=== PATIENT | male | born 1960 | race Two or more races ===

== ENCOUNTER 2020-06-27 12:48 | Inpatient (IN) | payer MEDICAID, MEDICARE ==
[~2020-06-27] VITALS: Ht 193 cm; Wt 125.9 kg
[~2020-06-27 12:48] MED LIST: AMLO-257 PO; LISI-662 PO; PARO10TA89 PO
[2020-06-27 14:42] LABS: BASOPHILS % (AUTO) 1.9 % (0.0-2.0); EOSINOPHILS % (AUTO) 0.1 % (1.0-6.0); HEMATOCRIT 47.4 % (41-53); HEMOGLOBIN 16.1 g/dL (13.5-17.5); LYMPHOCYTES # (AUTO) 1.9 K/uL (1.0-4.8); LYMPHOCYTES % (AUTO) 21.1 % (22.0-44.0); MEAN CORPUSCULAR HEMOGLOBIN 30.6 pg (26.0-34.0); MEAN CORPUSCULAR HGB CONC 33.9 G/dL (31.0-37.0); MEAN CORPUSCULAR VOLUME 90 fL (80-100); MONOCYTES # (AUTO) 0.5 K/uL (0.1-1.0); MONOCYTES % (AUTO) 5.5 % (2.0-9.0); NEUTROPHILS # (AUTO) 6.4 K/uL (1.8-7.7); NEUTROPHILS % (AUTO) 71.4 % (40.0-70.0); PLATELET COUNT (AUTO) 203 K/uL (150-450); RED BLOOD CELL COUNT(AUTO) 5.26 MIL/uL (4.50-5.90); RED CELL DISTRIBUTION WIDTH 13.8 % (11.5-14.5)
[2020-06-27 14:52] LABS: CALCIUM, TOTAL 9.1 mg/dL (8.8-10.5); CREATININE 1.48 mg/dL (0.60-1.30); POTASSIUM 4.5 mmol/L (3.5-5.1)
[2020-06-27 14:58] LABS: ALBUMIN 4.4 g/dL (3.4-5.0); BILIRUBIN,TOTAL 0.8 mg/dL (0.1-1.0)
[2020-06-27] MEDS ORDERED: HALOPERIDOL 5 MG TABLET PO PRN (15:00)
[2020-06-27] MEDS ORDERED: HALOPERIDOL LACTATE 5 MG/ML VIAL IM ONE (17:00)
[2020-06-27] MEDS ORDERED: LORazepam 2 MG/ML VIAL IM ONE (17:00)
[2020-06-27] MEDS ORDERED: DiphenhydrAMINE HCL 50 MG/ML VIAL IM ONE (17:00)
[2020-06-27 18:30] VITALS: BP 156/60
[2020-06-27] MEDS ORDERED: OMEPRAZOLE 20 MG CAPSULE PO PRN (20:45)
[2020-06-27] MEDS ORDERED: BENZOCAINE/MENTHOL LOZENGE MM PRN (20:45)
[2020-06-27] MEDS ORDERED: MAGNESIUM HYDROXIDE SUSPENSION 30 ML UDCUP PO PRN (20:45)
[2020-06-27] MEDS ORDERED: ONDANSETRON HCL 4 MG TABLET PO PRN (20:45)
[2020-06-27] MEDS ORDERED: CloNIDine HCL 0.1 MG TABLET PO PRN (20:45)
[2020-06-27] MEDS ORDERED: LOPERAMIDE HCL 2 MG CAPSULE PO PRN (20:45)
[2020-06-27] MEDS ORDERED: PETROLATUM,WHITE 28 GM JELLY TP PRN (20:45)
[2020-06-27] MEDS ORDERED: ACETAMINOPHEN 325 MG TABLET PO PRN (20:45)
[2020-06-27] MEDS ORDERED: BACITRACIN 28.4 GM OINTMENT TP PRN (20:45)
[2020-06-27] MEDS ORDERED: MAG HYDROX/AL HYDROX/SIMETH ES 30 ML SUSPENSION UDCUP PO PRN (20:45)
[2020-06-27] MEDS ORDERED: DOCUSATE SODIUM 100 MG CAPSULE PO PRN (20:45)
[2020-06-27] MEDS ORDERED: ALBUTEROL SULFATE HFA 90 MCG/PUFF 8 GM INHALER IH PRN (20:45)
[2020-06-27] MEDS: LORazepam 2 MG TABLET PO PRN (20:59)
[2020-06-27 22:44] VITALS: BP 131/85
[2020-06-28] VITALS (11 sets, daily range): BP systolic 89–154; BP diastolic 59–104
[2020-06-28] MEDS: LORazepam 2 MG TABLET PO PRN ×2 (06:09→12:02)
[2020-06-28 07:12] LABS: FREE T4 (FREE THYROXINE) 0.97 ng/dL (0.76-1.46)
[2020-06-28] MEDS: LISINOPRIL 20 MG TABLET PO SCH (08:22)
[2020-06-28] MEDS: AmLODIPine BESYLATE 5 MG TABLET PO SCH (08:22)
[2020-06-28] MEDS: GABAPENTIN 300 MG CAPSULE PO SCH ×3 (08:22→16:57)
[2020-06-28] MEDS: NICOTINE 14 MG/24 HOUR PATCH TD SCH (08:29)
[2020-06-28] MEDS: IBUPROFEN 600 MG TABLET PO PRN (09:22)
[2020-06-28] MEDS: QUEtiapine FUMARATE 100 MG TABLET PO PRN (12:02)
[2020-06-28] MEDS ORDERED: GuaiFENesin/D-METHORPHAN [SUGAR-FREE] 200-20MG/10 ML SYRUP UDCUP PO PRN (15:00)
[2020-06-28] MEDS: MULTIVITAMINS WITH MINERALS, THERAPEUTIC TABLET PO SCH (15:03)
[2020-06-28] MEDS: ChlordiazePOXIDE HCL 25 MG CAPSULE PO PRN (15:03)
[2020-06-29 03:30] VITALS: BP 135/77
[2020-06-29 07:00] VITALS: BP 147/92
[2020-06-29] MEDS ORDERED: ChlordiazePOXIDE HCL 25 MG CAPSULE PO PRN (07:00)
[2020-06-29] MEDS ORDERED: FOLIC ACID 1 MG TABLET PO SCH (09:00)
[2020-06-29] MEDS ORDERED: THIAMINE 100 MG TABLET PO SCH (09:00)
[2020-06-29] MEDS ORDERED: CITALOPRAM HYDROBROMIDE 20 MG TABLET PO SCH (09:00)
[2020-06-29] MEDS: NICOTINE 14 MG/24 HOUR PATCH TD SCH (09:20)
[2020-06-29] MEDS: AmLODIPine BESYLATE 5 MG TABLET PO SCH (09:21)
[2020-06-29] MEDS: MULTIVITAMINS WITH MINERALS, THERAPEUTIC TABLET PO SCH (09:21)
[2020-06-29] MEDS: QUEtiapine FUMARATE 100 MG TABLET PO PRN (09:21)
[2020-06-29] MEDS: ChlordiazePOXIDE HCL 25 MG CAPSULE PO SCH ×2 (09:22→13:38)
[2020-06-29] MEDS: LISINOPRIL 20 MG TABLET PO SCH (09:22)
[2020-06-29] MEDS: GABAPENTIN 300 MG CAPSULE PO SCH ×2 (09:22→13:38)
[2020-06-29 09:33] VITALS: BP 131/84
[2020-06-29] MEDS: IBUPROFEN 600 MG TABLET PO PRN (09:33)
[2020-06-29 11:00] VITALS: BP 102/62
[2020-06-29] MEDS: ChlordiazePOXIDE HCL 25 MG CAPSULE PO PRN (11:11)
[2020-06-29 12:00] VITALS: BP 111/63
[2020-06-29] MEDS ORDERED: CITA-144 PO (15:07)
[2020-06-29] MEDS ORDERED: GABA-1181 PO (15:07)
[2020-06-29] MEDS ORDERED: CITA10TA99 PO (16:47)
[2020-06-29] MEDS ORDERED: AMLO-257 PO (16:49)
[2020-06-29] MEDS ORDERED: GABA300C PO (16:53)
[2020-07-01] MEDS ORDERED: ChlordiazePOXIDE HCL 10 MG CAPSULE PO PRN (07:00)
[2020-07-01] MEDS ORDERED: ChlordiazePOXIDE HCL 10 MG CAPSULE PO SCH (09:00)
[2020-07-02] MEDS ORDERED: ChlordiazePOXIDE HCL 10 MG CAPSULE PO PRN (07:00)
== END 2020-06-29 16:15 | disposition home or self-care (01) | DRG 881 ==
LOC: EMS 12:51 → 3EI 14:59
PROVIDERS: ADMIT Psychiatry & Neurology Psychiatry; ATTEND Psychiatry & Neurology Psychiatry
DX: F32.9 Major depressive disorder, single episode, unspecified (principal); N18.3 Chronic kidney disease, stage 3 (moderate); R45.851 Suicidal ideations; E66.9 Obesity, unspecified; E78.5 Hyperlipidemia, unspecified; F43.10 Post-traumatic stress disorder, unspecified; G47.00 Insomnia, unspecified; I12.9 Hypertensive chronic kidney disease with stage 1 through stage 4 chronic kidney disease, or unspecified chronic kidney disease; K21.9 Gastro-esophageal reflux disease without esophagitis; F17.210 Nicotine dependence, cigarettes, uncomplicated; K70.30 Alcoholic cirrhosis of liver without ascites; Z56.0 Unemployment, unspecified; Z59.0 Homelessness; Z85.47 Personal history of malignant neoplasm of testis; Z68.33 Body mass index [BMI] 33.0-33.9, adult; Z79.899 Other long term (current) drug therapy
CPT/HCPCS: 83036; 84436; 84439; G0480; J1200; J1630; J2060